=== PATIENT | male | born 1945 | race Caucasian/White ===

== ENCOUNTER 2018-05-03 18:41 | Inpatient (IN) ==
--- NOTE | 2018-05-03 19:50 | Diag Imaging Result Doc PS360 ---
EXAM: CHEST-2 VIEWS INDICATION: copd increased cough TECHNIQUE: 3 views COMPARISON: 09/18/2017 FINDINGS: The lungs are hyperinflated indicating advanced COPD, stable. There is stable biapical fibrotic change. Otherwise, the lungs are grossly clear. There is mild blunting of the right costophrenic angle that is stable and appears be due to pleural scarring. The cardiomediastinal silhouette and central vasculature are grossly unremarkable. IMPRESSION: Stable COPD changes and biapical scarring. No definite acute chest pathology. Electronically signed by Esdras Romero 05/03/2018 7:48 PM
[2018-05-03] MEDS ORDERED: ASPIRIN PR ONE (21:21)
[2018-05-03] MEDS ORDERED: SOLU-MEDROL IV ONE (21:22)
[2018-05-03] MEDS ORDERED: ZITHROMAX 500 MG/NS 500 MG/250 ML IVPB IV ONE (21:22)
[2018-05-03] MEDS ORDERED: DUONEB (A & A) INH ONE (21:22)
[2018-05-03] MEDS ORDERED: ROCEPHIN 1 GM in NS 50 ML IV ONE (21:22)
[2018-05-03] MEDS ORDERED: ASPIRIN ONE (22:00)
[2018-05-03 22:11] LABS: BASO# 0.04 X1000 (0.0-0.2); BASO% 0.4 % (0.0-0.8); EOS# 0.04 X1000 (0.0-0.7); EOS% 0.4 % (0.0-10.0); HEMATOCRIT 47.2 % (42.0-52.0); HEMOGLOBIN 15.3 g/dL (14.0-18.0); IMM GRAN# 0.04 X1000 (0.0-0.04); IMM GRAN% 0.4 % (0.0-0.5); LYMPH# 2.34 X1000 (1.2-3.4); LYMPH% 22.6 % (20.5-51.1); MCH 29.8 PG (27-31); MCHC 32.4 g/dL (33-37); MCV 91.8 FL (81-99); MONO# 0.81 X1000 (0.11-0.59); MONO% 7.8 % (1.7-9.3); MPV 10.7 FL (7.4-10.4); NEUT# 7.09 X1000 (1.4-6.5); NEUT% 68.4 % (42.2-75.2); PLT 278 X1000 (130-400); RBC 5.14 XMIL (4.7-6.1); RDW 13.9 % (11.5-14.5); WBC 10.36 X1000 (4.8-10.8)
[2018-05-03 22:28] LABS: AGAP 7; ALBUMIN 4.1 g/dL (3.5-5.0); ALKALINE PHOSPHATASE 100 U/L (32-122); BUN 13 mg/dL (8-22); CALCIUM 9.3 mg/dL (8.8-10.2); CHLORIDE 102 mmol/L (98-107); CK PROFILE 86 U/L (24-204); COSMO 288; CREATININE 0.7 mg/dL (0.7-1.2); ESTIMATED GFR > 60; GLUCOSE 146 mg/dL (70-104); GOT 19 U/L (10-34); GPT 11 U/L (10-44); POTASSIUM 4.5 mmol/L (3.5-5.1); SODIUM 143 mmol/L (136-145); TCO2 33 mmol/L (25-35); TOTAL PROTEIN 7.3 g/dL (6.3-8.3)
[2018-05-03 22:29] LABS: INR 0.98; PROTIME 13.5 Seconds (11.0-16.0)
[2018-05-03 22:30] LABS: PTT 30.9 Seconds (22.3-41.8)
[2018-05-03] MEDS ORDERED: ASPIRIN PO ONE (22:42)
[2018-05-03] MEDS ORDERED: NS 1,000 ML IV ONE (22:42)
--- NOTE | 2018-05-04 00:12 | PROVIDER DOCUMENTATION ---
This chart was entered by Gertrude Snyder Scribe, acting as scribe for Shaheed Bird MD. HPI-Respiratory General - General Chief Complaint: Cough Stated Complaint: SOB Time Seen by Provider: 05/03/18 21:09 Source: patient Allergies/Adverse Reactions: Patient Allergies Allergy/AdvReac Type Severity Reaction Status Date / Time No Known Allergies Allergy Verified 03/24/17 15:29 Home Medications: Home Medication List Medication Instructions Recorded Confirmed Last Taken Type Carvedilol [Coreg] 3.125 mg PO BID 10/23/12 09/18/17 09/17/17 18:00 History Atorvastatin Calcium [Lipitor] 40 mg PO DAILY 11/13/14 09/18/17 09/17/17 08:00 History Lisinopril 2.5 mg PO DAILY 11/13/14 09/18/17 09/17/17 08:00 History Nitroglycerin Sl [Nitroglycerin] 0.4 mg SL PRN PRN #50 tab 04/02/17 09/18/17 Unknown Rx Aclidinium Voca [Tudorza 400 mcg IH BID 04/26/17 09/18/17 09/17/17 18:00 History Pressair] Albuterol Sulfate [Proair Hfa] 1 puff INH DIRECTED PRN PRN 04/26/17 09/18/17 09/17/17 18:00 History Amlodipine Besylate [Norvasc] 10 mg PO DAILY 04/26/17 09/18/17 09/17/17 08:00 History Aspirin [Ecotrin] 81 mg PO DAILY 04/26/17 09/18/17 09/17/17 08:00 History Clarithromycin [Biaxin] 500 mg PO Q12H 04/26/17 09/18/17 09/17/17 18:00 History Fluticasone/Salmeterol [Advair 1 puff INH DAILY 04/26/17 09/18/17 Unknown Hi story 500-50 Diskus] Formoterol Fumarate [Perforomist] 20 mcg INH DIRECTED PRN PRN 04/26/17 09/18/17 Unknown History Isosorbide Mononitrate E.r. [Imdur] 30 mg PO DAILY 04/26/17 09/18/17 09/17/17 08:00 History Meloxicam [Mobic] 15 mg PO DAILY 04/26/17 09/18/17 09/17/17 08:00 History Methocarbamol [Robaxin-750] 750 mg PO TID 04/26/17 09/18/17 09/17/17 18:00 History Moxifloxacin [Avelox] 400 mg PO DAILY 04/26/17 09/18/17 Unknown History Ranitidine [Zantac] 150 mg PO QHS 04/26/17 09/18/17 09/17/17 18:00 History Gabapentin 100 mg PO BID 09/18/17 09/18/17 Unknown History - History of Present Illness-Resp Nature of Presenting Problem: 73 yom presents to ED c/o of coughing spells that cause dry heaving with no sputum production for the last week. Pt states appetite and fluid intake has decreased this past week. Pt has a HX of COPD and Emphysema. Review of Systems - Adult - REVIEW OF SYSTEMS - ADULT Constitutional: reports: see HPI, fatique. denies: chills, fever Eyes: reports: no symptoms reported Ears, Nose, Mouth & Throat: reports: no symptoms reported Cardiovascular: reports: no symptoms reported Respiratory: reports: see HPI, chronic cough Gastrointestinal: reports: see HPI, nausea, other (dry heaves) Genitourinary: reports: no symptoms reported Musculoskeletal: reports: no symptoms reported Integumentary: reports: no symptoms reported Neurological: reports: no symptoms reported Psychiatric: reports: no symptoms reported Endocrine: reports: no symptoms reported Hematologic/Lymphatic: reports: no symptoms reported Allergic/Immunologic: reports: no symptoms reported All Other Systems: Reviewed and Negative Past History - Adult - PAST MEDICAL HISTORY-ADULT Review of Records: reports: Old Records Reviewed, Nursing Assessment Review, Medications Reviewed Major Childhood Illnesses: reports: denies history Cardiovascular: reports: CAD, HTN, hyperlipidemia, [place] Respiratory: reports: asthma, COPD, sleep apnea Gastrointestinal: reports: denies history Obstetrical/Gynecological: reports: denies history Genitourinary: reports: denies history Musculoskeletal: reports: denies history Neurological: reports: denies history Endocrine/Immune: reports: denies history Other Conditions: reports: denies history - PRIOR SURGERIES/PROCEDURES Surgical/Procedure History: reports: none - IMMUNIZATION STATUS Childhood Immunizations: See Nurse Assessment Flu Vaccine: See Nurse Assessment - FAMILY HISTORY Family History: reviewed, not pertinent - SOCIAL HISTORY Smoking: cigarettes, greater than 1 pack/day Provider spent 3-5 mins advising pt. on dangers of tobacco.: Discussed manners to quit use, and f/u contacts for add'l counseling. Physical Exam-General - PHYSICAL EXAM-ADULT Initial Vital Signs Reviewed: Yes - CONSTITUTIONAL General Appearance: appears well, alert, no apparent distress. negative: combative - EYES Eyes: PERRL/EOMI, pink conjunctivae. negative: photophobia, sunken eyes - HEAD, EARS, NOSE, MOUTH & THROAT HENMT: normocephalic/atraumatic, moist mucous membranes, normal ENT inspection. negative: frontal tenderness, maxillary tenderness - NECK Neck: non-tender, full range of motion, supple. negative: carotid bruit - RESPIRATORY Respiratory: no respiratory distress, no accessory muscle use, decreased breath sounds, crackles - CARDIOVASCULAR Cardiovascular: normal peripheral pulses, regular rate, rhythm - GASTROINTESTINAL (ABDOMEN) Abdominal Exam: normal bowel sounds, non tender, soft. negative: guarding, rigid, rebound - MUSCULOSKELETAL Back Exam: normal inspection, no CVA tenderness Extremity: normal range of motion, non-tender, normal gait, normal inspection - SKIN Integumentary: normal color, normal turgor, warm/dry - NEUROLOGIC Neurologic: nurse instructor II-XII nml as tested, grossly normal - PSYCHIATRIC Psych/Mental Status: normal mood/affect, normal thought content, normal thought process, oriented x 3 Progress - PLAN OF CARE/RESULTS Progress/Plan/Lab Results: Vital Signs - 8 hr 05/03/18 18:44 05/03/18 21:32 Temperature 98 F Pulse Rate 83 75 Respiratory Rate 18 16 Blood Pressure 142/46 O2 Sat by Pulse Oximetry 96 95 Laboratory Results - last 24 hr 05/03/18 05/03/18 05/03/18 21:50 21:50 21:50 WBC 10.36 RBC 5.14 Hgb 15.3 Hct 47.2 MCV 91.8 MCH 29.8 MCHC 32.4 L RDW Std Deviation 13.9 Plt Count 278 MPV 10.7 H Immature Gran % (Auto) 0.4 Neut % (Auto) 68.4 Lymph % (Auto) 22.6 [place] % (Auto) 7.8 Eos % (Auto) 0.4 Baso % (Auto) 0.4 Immature Gran # (Auto) 0.04 Neut # (Auto) 7.09 H Lymph # (Auto) 2.34 [place] # (Auto) 0.81 H Eos # (Auto) 0.04 Baso # (Auto) 0.04 PT INR PTT (Actin FS) Sodium 143 Potassium 4.5 Chloride 102 Carbon Dioxide 33 Anion Gap 7 BUN 13 Creatinine 0.7 Estimated GFR/1.73 m2 > 60 BUN/Creatinine Ratio 19 Glucose 146 H Calculated Osmolality 288 Calcium 9.3 Total Bilirubin 0.40 AST 19 ALT 11 Alkaline Phosphatase 100 Creatine Kinase 86 Troponin T [id number] Pept 570 H Total Protein 7.3 Albumin 4.1 Globulin 3.0 Albumin/Globulin Ratio 1.0 05/03/18 05/03/18 21:50 21:50 WBC RBC Hgb Hct MCV MCH MCHC RDW Std Deviation Plt Count MPV Immature Gran % (Auto) Neut % (Auto) Lymph % (Auto) [place] % (Auto) Eos % (Auto) Baso % (Auto) Immature Gran # (Auto) Neut # (Auto) Lymph # (Auto) [place] # (Auto) Eos # (Auto) Baso # (Auto) PT 13.5 INR 0.98 PTT (Actin FS) 30.9 Sodium Potassium Chloride Carbon Dioxide Anion Gap BUN Creatinine Estimated GFR/1.73 m2 BUN/Creatinine Ratio Glucose Calculated Osmolality Calcium Total Bilirubin AST ALT Alkaline Phosphatase Creatine Kinase Troponin T < 0.010 [id number] Pept Total Protein Albumin Globulin Albumin/Globulin Ratio Orders Category Date Time Status Cardiac Monitoring DIRECTED Care 05/03/18 21:21 Active Oxygen Therapy- ED Nursing DIRECTED Care 05/03/18 21:21 Active Saline Loc NOW Care 05/03/18 21:21 Active CHEST-2 VIEWS [RAD] Stat Exams 05/03/18 18:48 Completed CBC WITH ELECTRONIC DIFF [HEME] Stat Lab 05/03/18 21:50 Completed CK PROFILE [SP CHEM] Stat Lab 05/03/18 21:50 Completed COMPREHENSIVE METABOLIC PANEL [CHEM] Stat Lab 05/03/18 21:50 Completed PRO B-NATRIURETIC PEPTIDE Stat Lab 05/03/18 21:50 Completed PROTIME WITH INR [COAG] Stat Lab 05/03/18 21:50 Completed PTT [COAG] Stat Lab 05/03/18 21:50 Completed TROPONIN T Stat Lab 05/03/18 21:50 Completed 0.9% Sodium Chloride Inj [Ns] 1,000 ml Med 05/03/18 22:42 Discontinued IV 999 mls/hr Albuterol 2.5MG/Ipratrop 0.5MG [Duoneb (A & A)] Med 05/03/18 21:22 Discontinued 3 ml INH NOW ONE Aspirin Med 05/03/18 21:21 Discontinued 300 mg NH NOW ONE Aspirin Med 05/03/18 22:00 Discontinued 325 mg .ROUTE .STK-MED ONE Aspirin Med 05/03/18 22:42 Discontinued 325 mg PO NOW ONE Azithromycin 500 mg/Ns [Zithromax 500 mg/Ns] Med 05/03/18 21:22 Discontinued 500 mg in 250 ml IV NOW CefTRIAXONE [Rocephin] 1 gm Med 05/03/18 21:22 Discontinued 0.9% Sodium Chloride Inj [Ns] 50 ml IV NOW Methylprednisolone Sod Succ [Solu-Medrol] Med 05/03/18 21:22 Discontinued 80 mg IV NOW ONE Aerosol Treatments Routine Oth 05/03/18 21:24 Completed Aerosol Treatments Stat Oth 05/03/18 21:24 Completed CP/SOB/Palp >45 yrs of Age Stat Oth 05/03/18 21:21 Ordered EKG [EKG] Stat Ther 05/03/18 21:21 Ordered A/P: COPD exacerbation, dehydration, intractable nausea and vomiting. Dr ferrer accepted pt Result Diagrams: 05/03/18 21:50 05/03/18 21:50 - XRAY 1 XRAY: Bilateral XRAY Study: Chest (IMPRESSION: Stable COPD changes and biapical scarring. No definite acute chest pathology. Electronically signed by Esdras Romero 05/03/2018 7:48 PM) Impression: Normal - CONSULTS/PCP/HOSPITALIST Notification #1 *Consult/PCP/Hospitalist*: Dr ferrer Time Discussed: 00:11 Consult Disposition: Admit Departure - Departure Date of Disposition Decision: 05/03/18 Time of Disposition Decision: 21:39 DIAGNOSIS: COPD exacerbation, Dehydration Disposition: ADMITTED INPATIENT 09 Certified Medical Emergency: Emergent Condition: Fair Additional Freetext Instructions: We have examined and treated you today on an emergency basis only. This was not a substitute for, or an effort to provide, complete medical care. In most cases, you must let your doctor check you again. Tell your doctor about any new or lasting problems. We cannot recognize and treat all injuries or illnesses in one Emergency Department visit. If you had special tests, such as X-rays or CT scans, will be reviewed by radiologist and will call you if there are any new suggestions Follow up with primary care provider in 1 to 2 days if no improvement. If you do not have a primary care provider, you need to choose one as soon as possible. Take medicines as prescribed. Monitor for any side effects or adverse events from medications. If any side effect, adverse event or rash develops, or if you suspect any other adverse reaction to the medication, then discontinue the medication immediately and contact clinic /PCP or go to the nearest ER. Narcotic meds / sedative meds instruction - patent advised not to drive, operate any machinery or go into water after taking meds as it may impair mental ability to react to the situation in an appropriate manner. Continue other current medicines. Follow up with PCP within 24-48 hours, or s ooner if symptoms worsen or fail to improve. Patient / guardian verbalizes understanding of treatment plan, medication, and side effects and agrees with treatment plan. Patient leaves ER in stable condition and ambulatory state. Return to ER as needed. Discharge instructions reviewed verbally and given to patient in written form. Follow up with primary care provider. Referrals and Follow-Ups: Amber Bacon MD [Primary Care Provider] - - Critical Care Note This patient required my direct & personal management of CC.: No Attestation - Physician/ GEE Attestation Patient care was provided by Advanced Practice Provider:: No The physician spent face to face time with patient:: Yes Advanced Practice Provider documentation review:: Supervising physician onsite and consulted in the evaluation and care of this patient. The physician did have a face to face encounter with the patient. This chart was documented by the indicated scribe, (Gertrude Snyder Scribe) and accurately reflects the services I performed and decisions made by me, Shaheed Bird MD, as attested by the provider's signature.
[2018-05-04] MEDS ORDERED: VENTOLIN HFA INH PRN (09:27)
[2018-05-04] MEDS ORDERED: NITROGLYCERIN SL PRN (09:27)
[2018-05-04] MEDS ORDERED: ASPIRIN EC PO SCH (09:30)
[2018-05-04] MEDS ORDERED: ZANTAC PO SCH (09:30)
[2018-05-04] MEDS ORDERED: ARICEPT PO SCH (09:30)
[2018-05-04] MEDS ORDERED: PRILOSEC PO SCH (09:30)
[2018-05-04] MEDS ORDERED: FERROUS SULFATE PO SCH (09:30)
[2018-05-04] MEDS ORDERED: SYMBICORT 80/4.5 MICROGM INHALER INH SCH (09:30)
[2018-05-04] MEDS ORDERED: FLONASE NAS SCH (09:30)
[2018-05-04] MEDS ORDERED: NEURONTIN PO SCH (09:30)
[2018-05-04] MEDS ORDERED: ZITHROMAX 500 MG/NS 500 MG/250 ML IVPB IV SCH ×2 (09:30→21:00)
[2018-05-04] MEDS ORDERED: PRINIVIL PO SCH (10:00)
[2018-05-04] MEDS ORDERED: IMDUR PO SCH (10:00)
--- NOTE | 2018-05-04 10:08 | HISTORY AND PHYSICAL ---
PRIMARY CARE PHYSICIAN: Dr. Bacon. CHIEF COMPLAINT: Shortness of breath and nonproductive cough for 1 week that has progressively worsened. HISTORY OF PRESENTING ILLNESS: This is a 73-year-old male who presents to [facility] ER with complaints of shortness of breath and dry cough for the past week with a decreased appetite and decreased p.o. fluid intake. He has a history of tobacco use, smoking 1/2 to 3/4 a pack of cigarettes a day. His workup showed an O2 saturation on arrival on room air of 96%. His chest x-ray showed stable COPD changes and biapical scarring but no definite acute chest pathology. He has decreased breath sounds throughout entire posterior lung ch so he is being admitted for further evaluation and treatment. PAST MEDICAL HISTORY: Of a benign adrenal adenoma on the left side, COPD with continuous home O2, diverticulitis, coronary artery disease, hypertension, kidney stones, an atypical mycobacteria LOLITA infection, BPH, and glaucoma. PAST SURGICAL HISTORY: Cardiac catheterization in 2015, recent eye surgery for cataracts and colonoscopy x2. FAMILY HISTORY: His father had emphysema and of an NE. His mom of a stroke. His sister has a brain tumor and a brother that has lung cancer. SOCIAL HISTORY: He currently lives with his . Smokes a half a pack of cigarettes to 3/4 a pack of cigarettes a day. Has been a smoker for approximately 50 years. Denies any alcohol or illicit drug use. ALLERGIES: He has no known drug allergies. HOME MEDICATIONS: ProAir 1 puff inhalation p.r.n., Norvasc 5 mg p.o. at bedtime, aspirin 81 mg p.o. daily, atorvastatin 40 mg p.o. daily, Symbicort 80/4.5 mcg inhaler 2 puffs b.i.d., Coreg 6.25 mg p.o. b.i.d., donepezil 5 mg p.o. daily, ferrous sulfate 325 mg p.o. daily, Flonase 2 sprays nasally daily, Advair 500/50 Diskus 1 puff inhalation b.i.d., gabapentin 300 mg p.o. b.i.d., Imdur 30 mg p.o. daily, lisinopril 2.5 mg p.o. daily, nitroglycerin 0.4 mg sublingually p.r.n., omeprazole 40 mg p.o. daily, and Zantac 150 mg p.o. daily. LABORATORY DATA: Showed a white blood cell count of 10.36, hemoglobin 15.3, hematocrit 47.2, platelets 278,000. PT and INR of 13.5 and 0.98. Sodium 143, potassium 4.5, chloride 102, CO2 33, BUN of 13, creatinine 0.7, glucose 146. Cardiac enzyme was negative. ProBNP of 570. Chest x-ray showed stable COPD changes and biapical scarring but no definite acute chest pathology. REVIEW OF SYSTEMS: He denied any fever, chills, blurred vision, dizziness, chest pain. He did have a nonproductive dry cough, shortness of breath. Denied any abdominal pain, constipation, diarrhea, burning or hurting with urination. PHYSICAL EXAMINATION: On arrival he had a temperature of 98 degrees, pulse 83, respirations 18, blood pressure 142/46, saturating 96% on room air. GENERAL: This is a 73-year-old male who is lying in the bed and answers questions appropriately. HEENT: Normocephalic, atraumatic. Normal ENT inspection. Oropharynx and nares are clear. EYES: Pupils are equal, round, reactive to light and accommodation. Extraocular movements are intact. NECK: Normal inspection. Normal range of motion. LUNGS: With decreased breath sounds throughout entire posterior lung ch. Equal lung expansion. Chest wall movement is noted. HEART: Regular rate and rhythm. No murmurs, rubs, or gallops. ABDOMEN: Soft, nontender, nondistended. Bowel sounds are present x4 quadrants. MUSCULOSKELETAL: He has 5/5 strength x4 extremities. NEUROLOGICAL: The cranial nerves 2-12 appear grossly intact. ASSESSMENT: 1. An acute chronic obstructive pulmonary disease exacerbation. 2. Hypertension. 3. Coronary artery disease, history. 4. Tobacco abuse. PLAN: He has been admitted to the medical unit. Placed on a healthy heart diet. DuoNeb q.4 hours, Rocephin 1 gram IV q.24, azithromycin 500 mg IV q.24. Continue home medications as previously identified. Solu-Medrol 60 mg IV q.8 and wean as he improves. Further orders after being seen by attending. Dictated by LUCY Aguilar for Cirilo De La Paz MD cc: LUCY Aguilar MD Dr. Reddy
[2018-05-04] MEDS ORDERED: COREG PO SCH (10:30)
[2018-05-04] MEDS ORDERED: SOLU-MEDROL IV SCH (10:30)
[2018-05-04] MEDS ORDERED: DUONEB (A & A) INH SCH (11:30)
[2018-05-04 11:48] VITALS: BP 134/71
[2018-05-04] MEDS ORDERED: ROCEPHIN 1 GM in NS 50 ML IV ONE (12:24)
--- NOTE | 2018-05-04 12:56 | DISCHARGE SUMMARY ---
ADMISSION DATE: 05/04/2018 DISCHARGE DATE: 05/04/2018 DISCHARGE DIAGNOSES: 1. Acute chronic obstructive pulmonary disease exacerbation. 2. Bronchitis. 3. Severe emphysema. BRIEF HISTORY AND HOSPITAL COURSE: Briefly, a 73-year-old male presenting with progressive shortness of breath, some cough. No fevers, no chills, but he just had significant shortness of breath. When he came to the ER, he was in distress apparently, but he was not hypoxic. He had wheezing but all his parameters were pretty normal. He was afebrile. He was not hypoxic. He was not tachypneic. His chest x-ray was clear, but he was insistent upon he was admitted for COPD exacerbation. I am seeing him the next day. His lungs are clear. He is thin but he has got significant COPD at baseline, but no evidence of pure pneumonia. In any case, I feel he is stable for discharge. We will discharge him on a prednisone taper, Ceftin for another 7 days. He was on Rocephin and azithromycin here, and make sure he is on Combivent. He is on lisinopril at low dose. May need to consider an ARB just because of potential for worried about potential issues with that. Anticipate discharge and follow up with his PCP. Return for worsening shortness of breath or cough. cc: Cirilo De La Paz MD
[2018-05-04] MEDS ORDERED: ADVAIR 500/50 DISKUS INH SCH (19:30)
[2018-05-04] MEDS ORDERED: ROCEPHIN 1 GM in NS 50 ML IV SCH (21:00)
[2018-05-04] MEDS ORDERED: LIPITOR PO SCH (21:00)
[2018-05-04] MEDS ORDERED: NORVASC PO SCH (21:00)
== END 2018-05-04 14:05 | disposition home or self-care (01) | DRG 191 ==
LOC: P.ED 18:41 → P.MEDSURG 05-04 01:17
PROVIDERS: ATTEND Internal Medicine
CPT/HCPCS: 71020; 71046; 80053; 82550; 83880; 84484; 85025; 85610; 85730; 93005; 94640; 94761; A9270; J0456; J0696; J2930; J7030

== ENCOUNTER 2019-04-16 16:41 | Inpatient (IN) ==
[2019-04-16] MEDS ORDERED: XOPENEX NEB INH ONE (17:00)
[2019-04-16] MEDS ORDERED: PULMICORT INH ONE (17:00)
[2019-04-16] MEDS ORDERED: NS NEB INH SCH (17:00)
--- NOTE | 2019-04-16 17:03 | PROVIDER DOCUMENTATION ---
HPI-Respiratory General - General Chief Complaint: Shortness of Breath Stated Complaint: SOB SHAKING Time Seen by Provider: 04/16/19 16:49 Source: patient, family ( at bedside) Allergies/Adverse Reactions: Patient Allergies Allergy/AdvReac Type Severity Reaction Status Date / Time No Known Allergies Allergy Verified 04/16/19 18:23 Home Medications: Home Medication List Medication Instructions Recorded Confirmed Last Taken Type Carvedilol [Coreg] 6.25 mg PO BID 10/23/12 04/16/19 09/17/17 18:00 History Lisinopril 2.5 mg PO DAILY 11/13/14 04/16/19 09/17/17 08:00 History Albuterol Sulfate [Proair Hfa] 1 puff INH DIRECTED PRN PRN 04/26/17 04/16/19 09/17/17 18:00 History Aspirin [Ecotrin] 81 mg PO DAILY 04/26/17 04/16/19 09/17/17 08:00 History Isosorbide Mononitrate E.r. [Imdur] 30 mg PO DAILY 04/26/17 04/16/19 09/17/17 08:00 History Gabapentin 300 mg PO BID 09/18/17 04/16/19 Unknown History Albuterol 2.5MG/Ipratrop 0.5MG 3 ml INH RTQ6H #120 neb 05/04/18 04/16/19 Unknown Rx [Duoneb] Atorvastatin Calcium [Lipitor] 40 mg PO DAILY 05/04/18 04/16/19 Unknown History Budesonide/Formoterol Fumarate 2 puff INHALATION BID 05/04/18 04/16/19 Unknown History [Symbicort 80-4.5 Mcg Inhaler] Donepezil HCl 5 mg PO DAILY 05/04/18 04/16/19 Unknown History Ferrous Sulfate 325 mg PO DAILY 05/04/18 04/16/19 Unknown History Fluticasone/Salmeterol [Advair 1 puff INHALATION BID 05/04/18 04/16/19 Unknown History 500-50 Diskus] Nitroglycerin Sl [Nitroglycerin] 0.4 mg SUBLINGUAL PRN PRN 05/04/18 04/16/19 Unknown History Levofloxacin [Levaquin] 500 mg PO DAILY #10 tab 04/21/19 Unknown Rx Methylprednisolone [Medrol Dosepak] 4 mg PO DIRECTED #1 pkg 04/21/19 Unknown Rx - History of Present Illness-Resp Nature of Presenting Problem: 73 YO M presents with worsening SOB x 2 days, with associated cough, chills, production of phlegm. Denies sick contacts. Has hx of COPD and PATEL and is on CPAP at night with oxygen attached to it. He follows with Dr. Bacon. Onset/Duration: reports: 2 days ago Timing: reports: still present, getting worse Context: denies: recent foreign travel Cough Quality/Degree: reports: moderate, sputum, blood streaked sputum Episode Frequency: chronic episodes Current Respiratory Medication Therapy: Initiated albuterol/atrovent inhale, Initiated prednisone Modifying Factors: improves with: oxygen. worse with: coughing Associated Symptoms: reports: cough, muscle/bodyaches, shortness of breath, short of breath, wheezing. denies: dizziness, headache, hurts to breathe, nasal congestion, sore throat Similar Symptoms Previously?: Yes Recently seen or treated by another doctor?: Yes (went to pulmonology 5 days ago for the same symptoms.) Review of Systems - Adult - REVIEW OF SYSTEMS - ADULT Constitutional: reports: chills Eyes: reports: no symptoms reported Ears, Nose, Mouth & Throat: reports: no symptoms reported Cardiovascular: reports: palpitations Respiratory: reports: cough, dyspnea on exertion, excessive sputum production, shortness of breath, wheezing Gastrointestinal: reports: no symptoms reported Genitourinary: reports: no symptoms reported Musculoskeletal: reports: no symptoms reported Integumentary: reports: no symptoms reported Neurological: reports: no symptoms reported Psychiatric: reports: no symptoms reported Endocrine: reports: no symptoms reported Hematologic/Lymphatic: reports: no symptoms reported Past History - Adult - PAST MEDICAL HISTORY-ADULT Review of Records: reports: Old Records Reviewed Major Childhood Illnesses: reports: denies history Cardiovascular: reports: CAD, HTN, hyperlipidemia, [place] Respiratory: reports: asthma, COPD, sleep apnea Gastrointestinal: reports: denies history Obstetrical/Gynecological: reports: denies history Genitourinary: reports: denies history Musculoskeletal: reports: denies history Neurological: reports: denies history Endocrine/Immune: reports: denies history Other Conditions: reports: denies history - PRIOR SURGERIES/PROCEDURES Surgical/Procedure History: reports: none - IMMUNIZATION STATUS Childhood Immunizations: See Nurse Assessment Flu Vaccine: See Nurse Assessment - FAMILY HISTORY Family History: reviewed, not pertinent - SOCIAL HISTORY Smoking: cigarettes Substance Use: denies Living Situation: family Physical Exam-General - PHYSICAL EXAM-ADULT Initial Vital Signs Reviewed: Yes - CONSTITUTIONAL General Appearance: alert, mild distress (respiratory), thin - EYES Eyes: pink conjunctivae - HEAD, EARS, NOSE, MOUTH & THROAT HENMT: normocephalic/atraumatic, other (dry membranes) - NECK Neck: full range of motion, supple - RESPIRATORY Respiratory: respiratory distress, accessory muscle use, rales, rhonchi, wheezing - CARDIOVASCULAR Cardiovascular: tachycardia - GASTROINTESTINAL (ABDOMEN) Abdominal Exam: non tender, soft - MUSCULOSKELETAL Back Exam: normal inspection Extremity: normal range of motion, non-tender, no pedal edema, no calf tenderness - SKIN Integumentary: warm/dry, other (scaley). negative: cyanosis - NEUROLOGIC Neurologic: grossly normal - PSYCHIATRIC Psych/Mental Status: normal mood/affect, oriented x 3 Progress - PLAN OF CARE/RESULTS Progress/Plan/Lab Results: Orders Category Date Time Status Admit - [facility] Routine AdmDCTranf 04/16/19 22:43 Active Activity - Up with Assistance ORDERED Care 04/16/19 22:43 Completed Cardiac Monitoring DIRECTED Care 04/16/19 16:56 Completed IV Insertion ORDERED Care 04/16/19 16:56 Completed Intake and Output-Strict ORDERED Care 04/16/19 22:43 Completed Notify MD of + Sepsis Screen NOW Care 04/16/19 16:56 Completed Notify Physician As Ordered Care 04/16/19 16:56 Completed Vital Signs Order Q 8-HR ASSESS Care 04/16/19 22:43 Completed Heart Healthy Diet Diet 04/16/19 22:44 Completed CHEST-2 VIEWS [RAD] Stat Exams 04/16/19 16:[address] THORAX W/O CONTRAST [CT] Stat Exams 04/16/19 20:27 Completed ABG [RESP] Routine Lab 04/16/19 18:35 Completed BLOOD CULTURE [BLDCUL] Stat Lab 04/16/19 17:32 Completed CBC WITH DIFF [HEME] Routine Lab 04/17/19 06:25 Completed CBC WITH DIFF [HEME] Stat Lab 04/16/19 17:10 Completed CK PROFILE [SP CHEM] Stat Lab 04/16/19 17:10 Completed COMPREHENSIVE METABOLIC PANEL [CHEM] Routine Lab 04/17/19 06:25 Completed COMPREHENSIVE METABOLIC PANEL [CHEM] Stat Lab 04/16/19 17:10 Completed Flu Swab [INFLUENZA SCREEN A/B] Stat Lab 04/16/19 17:55 Completed LACTATE, PLASMA [CHEM] Lab 04/16/19 20:29 Completed LACTATE, PLASMA [CHEM] Lab 04/16/19 23:05 Completed LACTATE, PLASMA [CHEM] Q3H Lab 04/16/19 17:10 Completed MAGNESIUM [CHEM] Routine Lab 04/17/19 06:25 Completed PRO B-NATRIURETIC PEPTIDE Stat Lab 04/16/19 17:10 Completed PROTIME WITH INR [COAG] Stat Lab 04/16/19 17:10 Completed PTT [COAG] Stat Lab 04/16/19 17:10 Completed SPUTUM CULTURE WITH GRAM STAIN [RM] Routine Lab 04/16/19 19:28 Completed TROPONIN T HIGH SENSITIVITY Stat Lab 04/16/19 17:10 Completed URINALYSIS W/POSS RFLX CULT [URINALYSIS] Stat Lab 04/16/19 17:55 Completed ATORVAstatin [Lipitor] Med 04/17/19 09:00 Discontinued 40 mg PO DAILY Acetaminophen [Tylenol] Med 04/16/19 22:43 Discontinued 650 mg PO Q6H PRN PRN Albuterol 2.5MG/Ipratrop 0.5MG [Duoneb (A & A)] Med 04/17/19 04:00 Discontinued 3 ml INH RTQ6H Amlodipine [Norvasc] Med 04/16/19 22:43 Discontinued 5 mg PO QHS Arformoterol Neb [Brovana Neb] Med 04/17/19 07:30 Discontinued 15 microgm INH RTBID Aspirin EC Med 04/17/19 09:00 Discontinued 81 mg PO DAILY Azithromycin [Zithromax] Med 04/16/19 22:43 Discontinued 500 mg PO DAILY Budesonide [Pulmicort] Med 04/16/19 17:00 Discontinued 0.5 mg INH NOW ONE Carvedilol [Coreg] Med 04/16/19 22:43 Discontinued 6.25 mg PO BID CefTRIAXONE [Rocephin] 1 gm Med 04/16/19 20:26 Discontinued 0.9% Sodium Chloride Inj [Ns] 50 ml IV NOW CefTRIAXONE [Rocephin] 1 gm Med 04/16/19 22:43 Discontinued 0.9% Sodium Chloride Inj [Ns] 50 ml IV Q24H Enoxaparin [Lovenox] Med 04/16/19 22:43 Discontinued 40 mg SUBQ Q24H Gabapentin [Neurontin] Med 04/16/19 22:43 Discontinued 300 mg PO BID Ipratropium [place] Neb [Atrovent Neb] Med 04/16/19 20:26 Discontinued 0.5 mg INH NOW ONE Isosorbide Mononitrate E.r. [Imdur] Med 04/17/19 09:00 Discontinued 30 mg PO DAILY LISINOpril [Prinivil] Med 04/17/19 09:00 Discontinued 2.5 mg PO DAILY Levalbuterol Neb [Xopenex Neb] Med 04/16/19 17:00 Discontinued 1.25 mg INH NOW ONE Methylprednisolone Sod Succ [Solu-Medrol] Med 04/16/19 22:43 Discontinued 40 mg IV Q12H Ondansetron [Zofran] Med 04/16/19 22:43 Discontinued 4 mg IV Q4H PRN PRN Sodium Chloride 0.9% Neb [Ns Neb] Med 04/16/19 17:00 Discontinued 5 ml INH DIRECTED Aerosol Treatments Routine Oth 04/16/19 17:00 Completed Aerosol Treatments Routine Oth 04/16/19 20:27 Completed Aerosol Treatments Routine Oth 04/16/19 22:43 Completed Aerosol Treatments Stat Ot 04/16/19 17:00 Completed Aerosol Treatments Stat Ot 04/16/19 20:27 Completed Aerosol Treatments Stat Ot 04/16/19 22:43 Completed Exercise Tolerance With O2 Stat Ot 04/16/19 18:35 Completed Oxygen Device Stat Ot 04/16/19 16:56 Completed Transfer/Admit Order [TRANSFER] Routine Transfer 04/16/19 20:10 Completed Result Diagrams: 04/19/19 06:44 04/19/19 06:44 - REASSESSMENT Reassessment #1 Time Reassessed: 18:23 Status: other (labs reviewed and ok. elevated WBC 2/2 to PO steroid use. Pt went to pulmonology 5 days ago and was given rx for steroids and abx but states could not get meds filled due to financial reasons until today. He took prednisone today.. Imaging showing COPD, no pneumonia) - EKG 1 Time of EKG reading by physician:: 17:43 EKG Read and Signed by:: Diandra Logan Rate: 101 Rhythm: Sinus tach with PACs [place]: normal QRS: normal HI Interval: shortened ST Wave: normal Prior EKG Comparison: unchanged from prior (09/20/17) - XRAY 1 XRAY Study: Chest Impression: See EMR Report (EXAM: CHEST-2 VIEWS - 04/16/2019 HISTORY: SOB TE CHNIQUE: Chest two views COMPARISON: 05/03/2018 FINDINGS: Heart size is normal. There are substantial COPD changes with hyperexpanded lungs. There is apical scarring/pleural thickening similar to prior. There is no acute consolidation, pleural effusion, or pneumothorax identified. IMPRESSION: Substantial COPD changes with hyperexpanded lungs. No other acute changes. Electronically signed by Rad Becker 04/16/2019 5:21 PM 04/16/19 [id number]) - CONSULTS/PCP/HOSPITALIST Notification #1 *Consult/PCP/Hospitalist*: Dr. Trejo Time Discussed: 20:09 Consult Disposition: Will see in ED, Admit Departure - Departure Date of Disposition Decision: 04/16/19 Time of Disposition Decision: 21:00 DIAGNOSIS: COPD exacerbation, Hypoxia Disposition: ADMITTED INPATIENT Certified Medical Emergency: Emergent Condition: Stable - Critical Care Note This patient required my direct & personal management of CC.: No Attestation - Physician/ GEE Attestation Patient care was provided by Advanced Practice Provider:: No The physician spent face to face time with patient:: Yes Advanced Practice Provider documentation review:: Supervising physician onsite and consulted in the evaluation and care of this patient. The physician did have a face to face encounter with the patient.
--- NOTE | 2019-04-16 17:24 | Diag Imaging Result Doc PS360 ---
EXAM: CHEST-2 VIEWS - 04/16/2019 HISTORY: SOB TECHNIQUE: Chest two views COMPARISON: 05/03/2018 FINDINGS: Heart size is normal. There are substantial COPD changes with hyperexpanded lungs. There is apical scarring/pleural thickening similar to prior. There is no acute consolidation, pleural effusion, or pneumothorax identified. IMPRESSION: Substantial COPD changes with hyperexpanded lungs. No other acute changes. Electronically signed by Rad Becker 04/16/2019 5:21 PM
[2019-04-16 17:28] LABS: BASO# 0.05 X1000 (0.0-0.2); BASO% 0.3 % (0.0-0.8); HEMATOCRIT 43.7 % (42.0-52.0); HEMOGLOBIN 13.9 g/dL (14.0-18.0); IMM GRAN# 0.04 X1000 (0.0-0.04); IMM GRAN% 0.2 % (0.0-0.5); LYMPH# 0.53 X1000 (1.2-3.4); LYMPH% 3.1 % (20.5-51.1); MCH 29.5 PG (27-31); MCHC 31.8 g/dL (33-37); MCV 92.8 FL (81-99); MONO# 1.02 X1000 (0.11-0.59); MPV 10.5 FL (7.4-10.4); NEUT# 15.32 X1000 (1.4-6.5); NEUT% 90.4 % (42.2-75.2); PLT 245 X1000 (130-400); RBC 4.71 XMIL (4.7-6.1); RDW 13.1 % (11.5-14.5); WBC 16.96 X1000 (4.8-10.8)
[2019-04-16 17:35] LABS: INR 1.26; PTT 34.4 Seconds (22.3-41.8)
[2019-04-16 17:46] LABS: AGAP 13; ALBUMIN 3.7 g/dL (3.5-5.0); ALKALINE PHOSPHATASE 78 U/L (32-122); BUN 18 mg/dL (8-22); CALCIUM 9.1 mg/dL (8.8-10.2); CHLORIDE 96 mmol/L (98-107); COSMO 278; CREATININE 1.1 mg/dL (0.7-1.2); ESTIMATED GFR > 60; GLUCOSE 133 mg/dL (70-104); GOT 23 U/L (10-34); GPT 10 U/L (10-44); POTASSIUM 4.6 mmol/L (3.5-5.1); SODIUM 137 mmol/L (136-145); TCO2 28 mmol/L (25-35); TOTAL PROTEIN 7.4 g/dL (6.3-8.3)
[2019-04-16 17:50] LABS: CK PROFILE 422 U/L (24-204)
[2019-04-16 18:02] LABS: URINE SOURCE CLEAN CATCH
[2019-04-16 18:07] LABS: CK INDEX 0.6 (0.0-2.5)
[2019-04-16 18:16] LABS: BILIRUBIN URINE NEGATIVE (NEGATIVE); BLOOD URINE NEGATIVE (NEGATIVE); COLOR YELLOW; GLUCOSE URINE NEGATIVE (NEGATIVE); KETONE URINE NEGATIVE (NEGATIVE); LEUKOCYTES URINE NEGATIVE (NEGATIVE); NITRITE URINE NEGATIVE (NEGATIVE); PH URINE 5.5; PROTEIN URINE TRACE mg/dL (NEGATIVE); SP GRAVITY URINE 1.026; TURBIDITY URINE CLEAR (CLEAR); UROBILINOGEN URINE NORMAL (NORMAL)
[2019-04-16 18:17] LABS: UR EPITHELIAL CELLS <10 /HPF (<10); URINE BACTERIA NEGATIVE /HPF; URINE RBC <10 /HPF (<10); URINE WBC <10 /HPF (<10)
[2019-04-16 18:41] LABS: ALLEN TEST YES; BE 3.6 mmoll (-3.0-3.0); BLOOD TYPE ARTERIAL; HCO3-(ACT) 27.7 mmoll (20.0-26.0); METHB 1.5 % (0.0-1.5); MODALITY CANNULA; O2(CT) 19.2 mL/dL (15.0-23.0); O2HB 95.4 % (95.0-99.0); PCO2(98.6) 43 mmHg (35-45); PO2(98.6) 121 mmHg (60-100); SAMPLE BLOOD; SAO2 99.6 % (95.0-100.0); THB 14.2 g/dL (11.5-17.4); pH(98.6) 7.43 (7.35-7.45)
[2019-04-16] MEDS ORDERED: ATROVENT NEB INH ONE (20:26)
[2019-04-16] MEDS ORDERED: ROCEPHIN 1 GM in NS 50 ML IV ONE (20:26)
--- NOTE | 2019-04-16 21:04 | HISTORY AND PHYSICAL ---
REASON FOR ADMISSION: Worsening shortness of breath for the last 5 days. HISTORY OF PRESENT ILLNESS: Mr. Bradley is a 73-year-old male with past medical history of COPD on home nocturnal O2. He also has a history of chronic disease, diverticulosis, hypertension, kidney stones, BPH, glaucoma. He says for the last 1 month he has had progressive shortness of breath, but over the last 1 week he has been having worsening shortness of breath with mild exertion, infrequent PND, and some mild orthopnea. He says he has also been coughing for the last couple weeks, yellowish bloody sputum. He admits to having a 10 pound weight loss over the last 1 month also. He denies any leg swelling. No extremity redness or pain. He complains also over the last 1 week of mild chest pain with exertion, which is relieved by rest. He denies any fever or chills. He states that he has been using nebulizer treatments more frequently. He denies any contact with anybody with respiratory illnesses. No arthralgia, rash, polyuria, polydipsia. REVIEW OF SYSTEMS: Twelve systems review, positive findings per HPI. The patient says he has been having increased tremors for the last day. ALLERGIES: No allergies. HOME MEDICATIONS: Are Norvasc 5 mg daily, DuoNeb q.6 p.r.n., Coreg 6.25 mg b.i.d., aspirin 81 mg daily, ferrous sulfate 325 mg daily, Isosorbide 30 mg day 2, atorvastatin 40 mg daily, lisinopril 2.5 mg daily, sublingual nitroglycerin 0.4 mg p.r.n., ProAir 1 puff as directed, Symbicort 2 puffs b.i.d. p.r.n. SURGICAL HISTORY: Patient says he has had only cataract surgery. He has had a cardiac cath in the past also. FAMILY HISTORY: Notable for COPD, type 2 diabetes, strokes, diabetes, lung cancer, brain tumor in first-degree relatives. SOCIAL HISTORY: Smokes one-half a pack a day. No alcohol or drug use. , lives with . LABORATORY WORK: White count 17,000, hemoglobin 13 and hematocrit 40, platelets 245,000 with 90% differential. BUN is 18, creatinine 1.1, glucose 133, creatine kinase 422. Troponin is only 22. ProBNP 498. PTT is normal. Urinalysis, trace protein. Blood gas 7.43, pCO2 43, PO2 121 on 3 L. Chest film does not show any acute infiltrate or effusion, it does show COPD findings, i.e., hyperexpanded lungs. PHYSICAL EXAMINATION: VITAL SIGNS: Respiratory rate 25, blood pressure 120/70, heart rate 100, temperature 98.5 degrees, 96% on room air with 3 L nasal cannula. GENERAL: Elderly white male who is not in acute respiratory distress. He is alert and oriented to person, time with normal mood and affect. HEENT: Head is normocephalic, atraumatic. Eyes, LYN, EOMI. He is anicteric. Not pale. ENT exam is grossly normal. No sinusitis. NECK: Supple. No JVD or carotid bruit. No thyromegaly. CHEST: Decreased entry both lung ch. Expiratory wheezes. CARDIOVASCULAR: First and second heart sounds are heard but distant. Rhythm is regular. No murmurs appreciated. ABDOMEN: Scaphoid, soft, nontender. No organomegaly. Bowel sounds are normal. RECTAL: Deferred at this time. EXTREMITIES: No edema or peripheral cyanosis. The patient has grade 2 clubbing. NEUROLOGIC: Intention tremor is noted, otherwise grossly normal. SKIN: Intact with no breakdown, erythema. ASSESSMENT: 1. Chronic obstructive pulmonary disease exacerbation. 2. Chronic respiratory failure secondary to chronic obstructive pulmonary disease. 3. Coronary artery disease. 4. Hypertension. 5. Hyperlipidemia. 6. Intention tremor. 7. Diverticulosis. 8. Probable pneumonia. PLAN: We will order a CT thorax to rule out possibility of underlying pneumonia in this patient who has a blood-stained sputum with leukocytosis. He did say he took some steroids today, but I sincerely doubt that would have caused him to have an immediate rise to 17,000 white cell count. We will continue long and short-acting bronchodilators. Start the patient on empiric antibiotics. Resume antihypertensive and antiplatelets medication. Send off sputum cultures. cc: Braeden Trejo MD
--- NOTE | 2019-04-16 21:05 | Diag Imaging Result Doc PS360 ---
EXAM: CT THORAX W/O CONTRAST - 04/16/2019 HISTORY: dyspnea ?PNA TECHNIQUE: CT thorax without contrast. No contrast administered per request the referring provider. COMPARISON: 04/16/2019 chest radiographs, 11/21/2014 CT thorax with contrast FINDINGS: There are substantial COPD changes. There is apical scarring similar to prior. There are scattered irregular infiltrates. These are most prominent at the lower lobes. There is no pleural effusion or pneumothorax identified. There are small to mildly prominent mediastinal lymph nodes. There are atherosclerotic calcifications noted. There is a 3 mm nonobstructing stone noted in the lower right kidney. There is stable 1.7 cm left adrenal lesion compatible with adenoma. IMPRESSION: Substantial COPD changes. Scattered irregular infiltrates which may relate to bronchopneumonia or atypical infection. This exam was performed using automated exposure control, adjustment of mA or kV according to patient size, and/or use of iterative reconstruction technique. Electronically signed by Rad Becker 04/16/2019 9:03 PM
[2019-04-16] MEDS ORDERED: ZITHROMAX PO SCH (22:43)
[2019-04-16] MEDS ORDERED: ZOFRAN IV PRN (22:43)
[2019-04-16] MEDS ORDERED: TYLENOL PO PRN (22:43)
[2019-04-16] MEDS ORDERED: NORVASC PO SCH (22:43)
[2019-04-16] MEDS: NEURONTIN PO SCH (23:35)
[2019-04-16] MEDS: SOLU-MEDROL IV SCH (23:35)
[2019-04-16] MEDS: LOVENOX SUBQ SCH (23:35)
[2019-04-16] MEDS: COREG PO SCH (23:35)
[2019-04-16] MEDS: ROCEPHIN 1 GM in NS 50 ML IV SCH (23:36)
[2019-04-17] MEDS: NS 1,000 ML IV SCH ×2 (00:48→20:54)
[2019-04-17] MEDS: DUONEB (A & A) INH SCH ×5 (03:25→23:38)
[2019-04-17 07:00] LABS: BASO# 0.02 X1000 (0.0-0.2); BASO% 0.1 % (0.0-0.8); HEMATOCRIT 42.1 % (42.0-52.0); HEMOGLOBIN 13.3 g/dL (14.0-18.0); IMM GRAN# 0.03 X1000 (0.0-0.04); IMM GRAN% 0.2 % (0.0-0.5); LYMPH# 0.85 X1000 (1.2-3.4); LYMPH% 5.5 % (20.5-51.1); MCH 29.6 PG (27-31); MCHC 31.6 g/dL (33-37); MCV 93.8 FL (81-99); MONO# 0.33 X1000 (0.11-0.59); MONO% 2.1 % (1.7-9.3); MPV 10.7 FL (7.4-10.4); NEUT# 14.21 X1000 (1.4-6.5); NEUT% 92.1 % (42.2-75.2); PLT 247 X1000 (130-400); RBC 4.49 XMIL (4.7-6.1); WBC 15.44 X1000 (4.8-10.8)
[2019-04-17 07:23] LABS: AGAP 12; ALB/GLOB RATIO 0.9; ALBUMIN 3.2 g/dL (3.5-5.0); ALKALINE PHOSPHATASE 71 U/L (32-122); BUN 26 mg/dL (8-22); CHLORIDE 101 mmol/L (98-107); COSMO 285; ESTIMATED GFR > 60; GLUCOSE 142 mg/dL (70-104); GOT 23 U/L (10-34); GPT 8 U/L (10-44); MAGNESIUM 2.2 mg/dL (1.5-2.7); POTASSIUM 5.4 mmol/L (3.5-5.1); SODIUM 139 mmol/L (136-145); TCO2 26 mmol/L (25-35); TOTAL BILIRUBIN 0.28 mg/dL (0.20-1.00); TOTAL PROTEIN 6.6 g/dL (6.3-8.3)
[2019-04-17 08:11] LABS: BANDS 2 % (0-1); LYMPHS 6 % (21-51); SEGS 92 % (42-75)
--- NOTE | 2019-04-17 08:15 | EKG Report ---
Test Performed on : 04/16/2019 5:39:08 PM Test Reason : ED. NO EKG ORDER FOR MUSE Blood Pressure : / mmHG Vent. Rate : 101 BPM Atrial Rate : 101 BPM P-R Int : 124 ms QRS Dur : 078 ms QT Int : 334 ms P-R-T Axes : 086 060 079 degrees QTc Int : 433 ms Sinus tachycardia. with premature atrial complexes. Otherwise normal ECG When compared with ECG of 18-SEP-2017 17:37, T wave amplitude has decreased in Anterior leads Unconfirmed Result
[2019-04-17] MEDS: ZITHROMAX 500 MG/NS 500 MG/250 ML IVPB IV SCH (09:04)
[2019-04-17] MEDS: COREG PO SCH ×2 (09:05→22:16)
[2019-04-17] MEDS: LIPITOR PO SCH (09:05)
[2019-04-17] MEDS: PRINIVIL PO SCH (09:05)
[2019-04-17] MEDS: IMDUR PO SCH (09:05)
[2019-04-17] MEDS: ASPIRIN EC PO SCH (09:05)
[2019-04-17] MEDS: NEURONTIN PO SCH ×2 (09:08→22:14)
[2019-04-17] MEDS: SOLU-MEDROL IV SCH (10:12)
[2019-04-17] MEDS ORDERED: BROVANA NEB ONE (10:40)
[2019-04-17] MEDS: BROVANA NEB INH SCH ×2 (10:45→19:42)
--- NOTE | 2019-04-17 21:54 | PROGRESS NOTE ---
DATE: 04/17/2019 SUBJECTIVE: A 73-year-old white gentleman admitted to the hospital yesterday for acute COPD exacerbation. Patient is markedly wheezing. No chest pain. PAST MEDICAL HISTORY: Reviewed. PAST SURGICAL HISTORY: Reviewed. MEDICINES: Reviewed. ALLERGIES: Not known. PHYSICAL EXAMINATION: Vital signs: Temperature is 97.4 degrees, pulse is 67, blood pressure is 95/47, 2 L nasal cannula. HEENT: Atraumatic, normocephalic. Pupils equal, reactive to light. Neck: Supple. Chest: Is wheezing. Heart: Sounds are regular, distant. Abdomen: Belly is soft, nontender. Extremities: No peripheral edema. Neurologic: No obvious deficits. INVESTIGATIONS: CBC: White cell count 15, hematocrit 42, platelets 247,000. ABG on 3 L, 7.43, pCO2 43, PO2 121. Sodium 139, potassium 5.4, chloride 100, BUN 26, creatinine 1.0. Troponin was high, proBNP 492, but CK index is normal. Plasma lactate was slightly high. Blood cultures were negative. Influenza screen was negative. Chest CT reported substantial COPD changes, irregular infiltrates related to bronchopneumonia or atypical infection. A 3 mm nonobstructing stone noted in the right lower kidney, 1.7 cm adrenal lesion compatible with adenoma. ASSESSMENT AND PLAN: 1. Acute chronic obstructive pulmonary disease exacerbation. Oxygen, bronchodilators with Brovana and IV steroids, IV antibiotics with ceftriaxone and Zithromax. 2. Deep venous thrombosis and gastrointestinal prophylaxis with Lovenox and Nexium. 3. Low blood pressure. Increasing IV fluids. We will stop the amlodipine and hold the blood pressure medicines. 4. Noncritical coronary artery disease on medical management. 5. Living will, Do Not Resuscitate. 6. Right kidney stones stable. 7. Benign adenoma. We will check the labs in the morning along with a CK and troponin. LEVEL OF DOCUMENTATION: 35 minutes. cc: Saul Bacon MD
[2019-04-18] MEDS: ROCEPHIN 1 GM in NS 50 ML IV SCH ×2 (01:25→22:07)
[2019-04-18] MEDS: NS 1,000 ML IV SCH ×3 (01:25→08:11)
[2019-04-18] MEDS: SOLU-MEDROL IV SCH ×3 (01:25→22:07)
[2019-04-18] MEDS: LOVENOX SUBQ SCH ×2 (01:26→22:07)
[2019-04-18] MEDS: DUONEB (A & A) INH SCH ×5 (03:25→21:48)
[2019-04-18 07:36] LABS: BASO# 0.02 X1000 (0.0-0.2); BASO% 0.1 % (0.0-0.8); HEMATOCRIT 37.1 % (42.0-52.0); HEMOGLOBIN 11.5 g/dL (14.0-18.0); IMM GRAN# 0.09 X1000 (0.0-0.04); IMM GRAN% 0.4 % (0.0-0.5); LYMPH# 0.96 X1000 (1.2-3.4); MCH 29.4 PG (27-31); MCV 94.9 FL (81-99); MONO% 3.3 % (1.7-9.3); MPV 11.1 FL (7.4-10.4); NEUT# 22.32 X1000 (1.4-6.5); NEUT% 92.2 % (42.2-75.2); PLT 299 X1000 (130-400); RBC 3.91 XMIL (4.7-6.1); RDW 13.1 % (11.5-14.5); WBC 24.19 X1000 (4.8-10.8)
--- NOTE | 2019-04-18 07:58 | EKG Report ---
Test Performed on : 04/18/2019 07:10:54 AM Test Reason : cp Blood Pressure : / mmHG Vent. Rate : 053 BPM Atrial Rate : 053 BPM P-R Int : 132 ms QRS Dur : 064 ms QT Int : 450 ms P-R-T Axes : 088 073 072 degrees QTc Int : 422 ms Sinus bradycardia. with premature supraventricular complexes. Otherwise normal ECG When compared with ECG of 16-APR-2019 17:39, (Unconfirmed) Vent. rate has decreased BY 48 BPM Confirmed by Aly Lord MD ([id number]) on 04/18/2019 4:19:44 PM
[2019-04-18 07:59] LABS: BANDS 4 % (0-1); LYMPHS 4 % (21-51); SEGS 92 % (42-75)
[2019-04-18] MEDS: IMDUR PO SCH (08:01)
[2019-04-18] MEDS: PRINIVIL PO SCH (08:03)
[2019-04-18] MEDS: LIPITOR PO SCH (08:03)
[2019-04-18] MEDS: NEURONTIN PO SCH ×2 (08:03→22:07)
[2019-04-18] MEDS: COREG PO SCH ×2 (08:03→22:07)
[2019-04-18] MEDS: ASPIRIN EC PO SCH (08:03)
[2019-04-18] MEDS: ZITHROMAX 500 MG/NS 500 MG/250 ML IVPB IV SCH (08:04)
[2019-04-18 08:19] LABS: AGAP 12; BUN 46 mg/dL (8-22); CALCIUM 8.6 mg/dL (8.8-10.2); CHLORIDE 103 mmol/L (98-107); CK PROFILE 169 U/L (24-204); COSMO 289; ESTIMATED GFR > 60; GLUCOSE 128 mg/dL (70-104); POTASSIUM 4.6 mmol/L (3.5-5.1); SODIUM 138 mmol/L (136-145); TCO2 23 mmol/L (25-35)
[2019-04-18] MEDS: BROVANA NEB INH SCH ×2 (10:55→19:48)
[2019-04-18] MEDS ORDERED: NEXIUM IV SCH (22:00)
[2019-04-18] MEDS ORDERED: SODIUM CHLORIDE 0.9% INJ SCH (22:00)
[2019-04-18] MEDS: PROTONIX IV SCH (22:07)
--- NOTE | 2019-04-18 22:09 | PROGRESS NOTE ---
DATE: 04/18/2019 SUBJECTIVE: The patient has low blood pressure yesterday. Dr. Landry increased IV fluids to 150 mL/h and his hemodynamics were stable. I stopped the amlodipine. He is on CPAP machine. His at bedside. Upon questioning, he denies of any chest pain. He still has shortness of breath. PHYSICAL EXAMINATION: Vital signs: Temperature is 97 degrees, pulse 83. Vitals are stable, 4 L nasal cannula 95%. HEENT: Within normal limits. Lungs: Poor air entry. Heart: Distant heart sounds. Abdomen: Belly is soft, nontender. Neurologic: No obvious deficits. INVESTIGATIONS: White cell count 24, hematocrit 37, platelets 299,000. Sodium 138, potassium 4.6, chloride 103, BUN 46, creatinine 1.0, glucose 128. ProBNP 504. CK was normal 169. Microbiology: Blood cultures were negative. ASSESSMENT AND PLAN: 1. Hypotension, probably dehydration. He does not look septic. Decrease IV fluids 80 mL/hour. Hold the amlodipine, Isordil as needed. 2. Chronic obstructive pulmonary disease exacerbation. Continue on IV steroids, IV antibiotics with ceftriaxone and Zithromax. 3. Deep vein thrombosis and gastrointestinal prophylaxis as per order sheet. 4. Elevation of BUN due to dehydration. 5. Living will, Do Not Resuscitate. LEVEL OF DOCUMENTATION: 25 minutes. cc: Saul Bacon MD
[2019-04-19] MEDS: DUONEB (A & A) INH SCH ×4 (04:00→20:15)
[2019-04-19 05:02] LABS: ALLEN TEST YES; BE 0.2 mmoll (-3.0-3.0); BLOOD TYPE ARTERIAL; HCO3-(ACT) 25.1 mmoll (20.0-26.0); METHB 1.2 % (0.0-1.5); O2(CT) 16.5 mL/dL (15.0-23.0); O2HB 97.1 % (95.0-99.0); PCO2(98.6) 46 mmHg (35-45); PO2(98.6) 131 mmHg (60-100); SAMPLE BLOOD; SAO2 99.7 % (95.0-100.0); THB 11.9 g/dL (11.5-17.4); pH(98.6) 7.36 (7.35-7.45)
[2019-04-19 05:03] LABS: MODALITY CANNULA
[2019-04-19] MEDS: NS 1,000 ML IV SCH ×2 (05:11→05:53)
[2019-04-19 08:08] LABS: BASO# 0.02 X1000 (0.0-0.2); BASO% 0.1 % (0.0-0.8); EOS# 0.05 X1000 (0.0-0.7); EOS% 0.3 % (0.0-10.0); HEMATOCRIT 37.2 % (42.0-52.0); HEMOGLOBIN 11.4 g/dL (14.0-18.0); IMM GRAN# 0.05 X1000 (0.0-0.04); IMM GRAN% 0.3 % (0.0-0.5); LYMPH# 0.88 X1000 (1.2-3.4); LYMPH% 4.5 % (20.5-51.1); MCH 29.6 PG (27-31); MCHC 30.6 g/dL (33-37); MCV 96.6 FL (81-99); MONO# 0.94 X1000 (0.11-0.59); MONO% 4.8 % (1.7-9.3); MPV 11.1 FL (7.4-10.4); NEUT# 17.74 X1000 (1.4-6.5); PLT 307 X1000 (130-400); RBC 3.85 XMIL (4.7-6.1); RDW 13.3 % (11.5-14.5); WBC 19.68 X1000 (4.8-10.8)
[2019-04-19] MEDS: PRINIVIL PO SCH (08:08)
[2019-04-19] MEDS: LIPITOR PO SCH (08:09)
[2019-04-19] MEDS: NEURONTIN PO SCH ×2 (08:09→21:25)
[2019-04-19] MEDS: COREG PO SCH ×2 (08:09→21:25)
[2019-04-19] MEDS: IMDUR PO SCH (08:09)
[2019-04-19] MEDS: ASPIRIN EC PO SCH (08:09)
[2019-04-19] MEDS: ZITHROMAX 500 MG/NS 500 MG/250 ML IVPB IV SCH (08:09)
[2019-04-19 08:16] LABS: AGAP 8; BUN 37 mg/dL (8-22); CALCIUM 8.3 mg/dL (8.8-10.2); CHLORIDE 110 mmol/L (98-107); COSMO 300; CREATININE 0.9 mg/dL (0.7-1.2); ESTIMATED GFR > 60; GLUCOSE 152 mg/dL (70-104); SODIUM 145 mmol/L (136-145); TCO2 27 mmol/L (25-35)
[2019-04-19] MEDS: SOLU-MEDROL IV SCH ×2 (10:12→21:25)
[2019-04-19] MEDS: BROVANA NEB INH SCH ×2 (11:51→20:15)
--- NOTE | 2019-04-19 20:19 | PROGRESS NOTE ---
DATE: 04/19/2019 SUBJECTIVE: The patient is better. Blood pressure is stable. Slightly short of breath and tremulous. PHYSICAL EXAMINATION: Temperature is 97 degrees. Vitals are stable.HEENT: Within normal limits. Lungs: Poor air entry. Cardiovascular: Distant heart sounds. Abdomen: Belly is soft, nontender. Neurological: No obvious deficits. INVESTIGATIONS: CBC: White cell count 19, hematocrit 37, platelets 307,000. ABG pH is 7.36, pCO2 46, PO2 131, 32%. SMA-7 is normal. BUN 37. ASSESSMENT AND PLAN: Acute chronic obstructive pulmonary disease exacerbation. Noncritical coronary artery disease, hypotension, hyperlipidemia. PLAN OF CARE: Is DC fluids. Orthostatic blood pressure. Continue present treatment for COPD, DVT, GI prophylaxis. Living will, DNR and will follow up on orthostatic blood pressure LEVEL OF DOCUMENTATION: 25 minutes. cc: Saul Bacon MD
[2019-04-19] MEDS: ROCEPHIN 1 GM in NS 50 ML IV SCH (21:24)
[2019-04-19] MEDS: LOVENOX SUBQ SCH (21:25)
[2019-04-19] MEDS: SODIUM CHLORIDE 0.9% INJ SCH (21:25)
[2019-04-19] MEDS: PROTONIX IV SCH (21:25)
[2019-04-20] MEDS: SOLU-MEDROL IV SCH ×3 (01:03→22:50)
[2019-04-20] MEDS: LOVENOX SUBQ SCH ×2 (01:03→22:03)
[2019-04-20] MEDS: ROCEPHIN 1 GM in NS 50 ML IV SCH ×2 (01:03→22:03)
[2019-04-20] MEDS: SODIUM CHLORIDE 0.9% INJ SCH (01:04)
[2019-04-20] MEDS: DUONEB (A & A) INH SCH ×4 (03:25→20:08)
[2019-04-20] MEDS: BROVANA NEB INH SCH ×2 (08:21→20:08)
[2019-04-20] MEDS: ZITHROMAX 500 MG/NS 500 MG/250 ML IVPB IV SCH (08:30)
[2019-04-20] MEDS: ASPIRIN EC PO SCH (08:30)
[2019-04-20] MEDS: COREG PO SCH ×2 (08:30→22:02)
[2019-04-20] MEDS: LIPITOR PO SCH (08:31)
[2019-04-20] MEDS: PRINIVIL PO SCH (08:31)
[2019-04-20] MEDS: IMDUR PO SCH (08:31)
[2019-04-20] MEDS: NEURONTIN PO SCH ×2 (08:31→22:02)
[2019-04-20] MEDS ORDERED: BROVANA NEB ONE (08:33)
--- NOTE | 2019-04-20 19:48 | PROGRESS NOTE ---
DATE: 04/20/2019 SUBJECTIVE: Patient is getting better. Complains of insomnia. Some confusion in the middle of the night. PHYSICAL EXAMINATION: Vital signs: Temperature is 98 degrees, pulse 66. Vitals are stable. HEENT: Within normal limits. Neck: Supple. Chest: Bilateral air entry. Heart: Distant heart sounds. Abdomen: Belly is soft, nontender. Neurologic: No obvious deficits. ASSESSMENT AND PLAN: 1. Acute chronic obstructive pulmonary disease exacerbation. 2. Noncritical coronary artery disease. 3. Delirium. 4. Slowly improving on CPAP machine and bronchodilators. Continue present treatment. If he is stable, will discharge in the morning, and we will hold the amlodipine since the blood pressure is well controlled. 5. Living Will, Do Not Resuscitate. LEVEL OF DOCUMENTATION: 25 minutes. cc: Saul Bacon MD
[2019-04-20] MEDS ORDERED: RESTORIL PO PRN (20:13)
[2019-04-20] MEDS ORDERED: ATIVAN IV ONE (21:50)
[2019-04-21] MEDS: PROTONIX IV SCH (03:36)
[2019-04-21] MEDS: SODIUM CHLORIDE 0.9% INJ SCH (03:38)
[2019-04-21] MEDS: DUONEB (A & A) INH SCH (06:08)
[2019-04-21 08:01] VITALS: BP 154/75
[2019-04-21] MEDS: ZITHROMAX 500 MG/NS 500 MG/250 ML IVPB IV SCH (08:05)
[2019-04-21] MEDS: ASPIRIN EC PO SCH (08:16)
[2019-04-21] MEDS: LIPITOR PO SCH (08:16)
[2019-04-21] MEDS: IMDUR PO SCH (08:16)
[2019-04-21] MEDS: PRINIVIL PO SCH (08:16)
[2019-04-21] MEDS: COREG PO SCH (08:16)
[2019-04-21] MEDS: NEURONTIN PO SCH (08:16)
--- NOTE | 2019-04-22 21:10 | DISCHARGE SUMMARY ---
ADMISSION DATE: 04/16/2019 DISCHARGE DATE: 04/21/2019 DISCHARGE DIAGNOSIS: Acute chronic obstructive pulmonary disease exacerbation. SECONDARY DIAGNOSES: 1. Benign left adrenal adenoma. 2.CAD 3. Hypertension. 4. Resolving shingles in the right L1 distribution. 5. Kidney stone on the right side. 6. Benign prostatic hyperplasia. BRIEF HISTORY: Please see the H and P that was done by the hospitalist. In brief, he is a 73- year-old white gentleman admitted to the hospital with acute shortness of breath, PND or orthopnea. He had a previous history of Mycobacterium simiae infection, treated for a year by Dr. Soto in [place]. The patient also uses CPAP machine at nighttime. HOSPITAL COURSE: During this hospital course the patient was given basically oxygen, bronchodilators, IV steroids and IV antibiotics. Initially, his blood pressure was very low. Amlodipine was stopped. He was given IV fluids. On followup his blood pressure was stable. The patient was getting delirium in the nighttime, for which he was given some Ativan and temazepam. He has a living will, Do Not Resuscitate/Allow Natural . The rest of the hospital course was uneventful. LABORATORY DATA: CBC: White cell count 19, hematocrit 37, platelets 307,000. ABG on 32%: PH is 7.36, pCO2 is 46, pO2 is 131. Sodium 145, potassium 5, chloride 110, BUN 37, creatinine 0.9, glucose 152. Urinalysis is clear. Blood cultures were negative. DISCHARGE INSTRUCTIONS: 1. Pneumococcal vaccine 13 was given in 10/2017; 23 was given in 2011. Continue outpatient CPAP machine. 2. Coreg 6.25 p.o. b.i.d., lisinopril 2.5 daily, ProAir q.6 as needed, aspirin 81 mg daily, isosorbide 30 daily, Neurontin 300 p.o. b.i.d., Lipitor 40 daily, Symbicort 80/4.5 two puffs b.i.d., Aricept 5 mg daily, iron sulfate 325 daily, nitroglycerin as needed, albuterol/Atrovent nebulizers q.6, Levaquin 500 daily for 10 days, Medrol Dosepak. 3. Living will: Do Not Resuscitate/Allow Natural . 4. Follow up in my office next week. cc: Saul Bacon MD [facility]
== END 2019-04-21 09:21 | disposition home health service (06) | DRG 192 ==
LOC: ED 16:41 → SUATTDRO 21:09 → 4N 21:09
PROVIDERS: ADMIT Internal Medicine; ATTEND Internal Medicine